=== PATIENT | female | born 1940 | race Caucasian/White ===

== ENCOUNTER → 2017-02-18 | Outpatient (CLI) | payer MEDICARE, OTHER | END | disposition home or self-care (01) | LOC: PCVCIMAG 10:55 | PROVIDERS: ATTEND Internal Medicine | DX: I08.1 Rheumatic disorders of both mitral and tricuspid valves (principal); I10 Essential (primary) hypertension; E78.5 Hyperlipidemia, unspecified | CPT/HCPCS: 93005; 93306; G0463 ==

== ENCOUNTER → 2018-03-26 | Outpatient (CLI) | payer MEDICARE, OTHER | END | disposition home or self-care (01) | LOC: PCVCIMAG 09:49 | DX: I10 Essential (primary) hypertension (principal); E78.5 Hyperlipidemia, unspecified; I34.0 Nonrheumatic mitral (valve) insufficiency; Z79.899 Other long term (current) drug therapy; Z79.82 Long term (current) use of aspirin; Z88.0 Allergy status to penicillin | CPT/HCPCS: 80061; 93005; 93306; G0463 ==

== ENCOUNTER → 2019-09-02 | Outpatient (CLI) | payer MEDICARE, OTHER ==
--- NOTE | 2019-09-02 14:41 | PCVCIMAG ---
APPROVED REPORT Study performed: 09/02/2019 09:50:13 EXAM: Comprehensive 2D, Doppler, and color-flow Echocardiogram Patient Location: Echo lab Status: routine BSA: 1.89 HR: 64 bpmBP: 110/82 mmHg Rhythm: NSR Other Information Study Quality: Good Risk Factors: Cardiac Risk Factors: HTN, Hyperlipidemia Indications Mitral regurgitation 2D Dimensions IVSd: 11.32 (7-11mm)LVOT Diam: 18.37 (18-24mm) LVDd: 43.98 mm PWd: 10.39 (7-11mm)Ascending Ao: 34.97 (22-36mm) LVDs: 31.27 (25-40mm) Left Atrium: 34.41 (27-40mm) Aortic Root: 22.58 mm LV Single Plane 4CH: 62.52 % LV Single Plane 2CH: 62.84 % Biplane EF: 61.6 % Volumes Left Atrial Volume (Systole) Single Plane 4CH: 52.97 mLSingle Plane 2CH: 50.34 mL LA ESV Index: 28.00 mL/m2 Aortic Valve AoV Peak Jovon.: 1.96 m/s AO Peak Gr.: 15.32 mmHgLVOT Max P.84 mmHg LVOT Max V: 1.31 m/s ROYA Vmax: 1.77 cm2 Mitral Valve E/A Ratio: 1.0 MV Decel. Time: 139.95 ms MV E Max Jovon.: 1.07 m/s MV A Jovon.: 1.08 m/s TDI E/Lateral E': 11.89E/Medial E': 13.38 Medial E' Jovon.: 0.08 m/s Lateral E' Jovon.: 0.09 m/s Pulmonary Valve PV Peak Gr.: 3.47 mmHg Pulmonary Vein P Vein S: 0.66 m/sP Vein A: 0.36 m/s P Vein D: 0.45 m/sP Vein A Dur.: 96.9 msec P Vein S/D Ratio: 1.47 Tricuspid Valve TR Peak Jovon.: 2.82 m/s TR Peak Gr.: 31.82 mmHg Left Ventricle The left ventricle is normal size. There is normal LV segmental wall motion. There is normal left ventricular wall thickness. Left ventricular systolic function is normal. The left ventricular ejection fraction is within the normal range. LVEF is 60-65%. Mild diastolic dysfunction is present (impaired relaxation pattern). Right Ventricle The right ventricle is normal size. The right ventricular systolic function is normal. Atria The left atrium size is normal. The right atrium size is normal. Aortic Valve The aortic valve is trileaflet, mildly sclerotic No aortic regurgitation is present. There is no aortic valvular stenosis. Mitral Valve The mitral valve is normal in structure. Moderate to moderately severe mitral regurgitation No evidence of mitral valve stenosis. Tricuspid Valve The tricuspid valve is normal in structure. Trace to mild tricuspid regurgitation. Pulmonary artery pressure is 38 mmHg. Pulmonic Valve The pulmonary valve is normal in structure. There is no pulmonic valvular regurgitation. Great Vessels The aortic root is normal in size. IVC is normal in size and collapses >50% with inspiration. Pericardium There is no pericardial effusion. <Conclusion> Left ventricular systolic function is normal. There is normal LV segmental wall motion. LVEF is 60-65%. Mild diastolic dysfunction The aortic valve is trileaflet, mildly sclerotic. No aortic regurgitation or stenosis. The mitral valve is normal in structure. Moderate to moderately severe mitral regurgitation Trace to mild tricuspid regurgitation. Pulmonary artery pressure of 38 mmHg. There is no pericardial effusion.
== END ==
LOC: PCVCIMAG 09:38
PROVIDERS: ATTEND Internal Medicine
DX: I65.23 Occlusion and stenosis of bilateral carotid arteries (principal); I10 Essential (primary) hypertension; I34.0 Nonrheumatic mitral (valve) insufficiency; E78.5 Hyperlipidemia, unspecified
CPT/HCPCS: 80061; 93005; 93306; G0463